=== PATIENT | female | born 1980 | race American Indian/Alaskan Native ===

== ENCOUNTER 2017-08-07 04:31 | Emergency (ER) | payer SELFPAY ==
[2017-08-07] MEDS ORDERED: CATAPRES PO ONE (07:26)
[2017-08-07] MEDS ORDERED: CATAPRES ONE (07:28)
--- NOTE | 2017-08-07 08:20 | Cat Scan Report ---
FINAL REPORT EXAM: CT HEAD/BRAIN WO CON HISTORY: galaviz, htn TECHNIQUE: CT imaging acquired through the head without intravenous contrast. Transaxial reformations are provided. PRIORS: None. FINDINGS: The ventricles, cisterns and sulci are normal. No intraparenchymal or extra-axial mass, hemorrhage, or mass effect. Galvez and white-matter differentiation is normal. Normal spherical shape of the globes. Paranasal sinuses and mastoid air cells are clear. No skull or facial fracture visualized. IMPRESSION: No acute intracranial abnormality.
[2017-08-07 08:21] LABS: Bilirubin,Urine NEG (Negative); Blood,Urine NEG (Negative); Color,Urine Yellow (Yellow); Mucus,Urine FEW /HPF; Nitrite,Urine NEG (Negative); Protein,Urine <15 mg/dL mg/dL (Negative); Urobilinogen,Urine < 2.0 mg/dL (<2.0)
[2017-08-07 08:31] LABS: Amphetamine Screen,Urine PRESUMPTIVE NEGATIVE; Benzodiazepines Screen,Urine PRESUMPTIVE NEGATIVE; Cannabinoid Screen,Urine PRESUMPTIVE NEGATIVE; Cocaine Screen,Urine PRESUMPTIVE NEGATIVE; Methadone Screen,Urine PRESUMPTIVE NEGATIVE; Opiate Screen,Urine PRESUMPTIVE NEGATIVE
[2017-08-07 08:41] LABS: Hematocrit 37.1 % (30.3-42.9); Hemoglobin 12.4 gm/dl (10.1-14.3); Mean Corpuscular HGB Conc 34 % (30-34); Mean Corpuscular Hemoglobin 30 pg (28-32); Mean Corpuscular Volume 88 fl (79-97); Platelet Count 277 K/mm3 (140-440); Red Blood Count 4.21 M/mm3 (3.65-5.03); Red Cell Distribution Width 14.6 % (13.2-15.2)
[2017-08-07 08:59] LABS: BUN/Creatinine Ratio 8; Blood Urea Nitrogen 7 mg/dL (7-17); Calcium 9.1 mg/dL (8.4-10.2); Hemolysis Index 7
[2017-08-07 09:16] LABS: Creatine Kinase MB < 1.0 ng/mL (0.0-4.0)
[2017-08-07 09:56] LABS: Basophils % (Manual) 0 % (0.0-1.8); Total Cells Counted 100
[2017-08-07 09:58] LABS: Platelet Estimate Consistent w Auto; RBC Morphology Normal
--- NOTE | 2017-08-07 18:25 | Emergency Department Report ---
ED General Adult HPI - General Chief complaint: High BP Stated complaint: H/A; DIZZINESS Time Seen by Provider: 08/07/17 16:54 Source: patient Mode of arrival: Ambulatory Limitations: No Limitations - History of Present Illness Initial comments: Reports having a "real bad headache" for the past 2 days, admits to dizziness, pressure behind the eyes, had similar symptoms years ago, was a sinus/migraine headache then. Has never been diagnosed with HTN. Admits to being under "a lot" of stress, looking for a job, moved here from [place]. -: Gradual Location: head Severity scale (0 -10): 7 Quality: other (throbbing) Consistency: constant Improves with: none Worsens with: none Associated Symptoms: denies other symptoms, headaches, other (Nausea). denies: confusion, chest pain, cough, diaphoresis, fever/chills, loss of appetite, malaise, rash, seizure, shortness of breath, syncope, weakness Treatments Prior to Arrival: other (Excerdrin migraine yesterday with no relief. ) - Related Data Previous Rx's Medication Instructions Recorded Last Taken Type Lisinopril [Zestril] 10 mg PO DAILY #30 tablet 08/07/17 Unknown Rx Allergies Allergy/AdvReac Type Severity Reaction Status Date / Time codeine Allergy Swelling Verified 08/07/17 07:21 Penicillins Allergy Hives Verified 08/07/17 07:21 ED Review of Systems ROS: Stated complaint: H/A; DIZZINESS Other details as noted in HPI Comment: All other systems reviewed and negative Constitutional: see HPI Eyes: as per HPI ENT: as per HPI Respiratory: see HPI Cardiovascular: as per HPI Endocrine: see HPI Gastrointestinal: as per HPI Genitourinary: as per HPI Musculoskeletal: as per HPI Skin: as per HPI Neurological: as per HPI Psychiatric: as per HPI Hematological/Lymphatic: as per HPI ED Past Medical Hx - Past Medical History Previous Medical History?: No - Surgical History Past Surgical History?: Yes Additional Surgical History: tubal ligation. thyroid - Social History Smoking Status: Never Smoker Substance Use Type: None - Medications Home Medications: Home Medications Medication Instructions Recorded Confirmed Last Taken Type Lisinopril [Zestril] 10 mg PO DAILY #30 tablet 08/07/17 Unknown Rx ED Physical Exam - General Limitations: No Limitations General appearance: alert, in no apparent distress - Head Head exam: Present: atraumatic - Eye Eye exam: Present: normal appearance, PERRL, EOMI - ENT ENT exam: Present: normal exam - Neck Neck exam: Present: normal inspection. Absent: tenderness - Respiratory Respiratory exam: Present: normal lung sounds bilaterally. Absent: respiratory distress, wheezes, rales, rhonchi, stridor - Cardiovascular Cardiovascular Exam: Present: regular rate, normal rhythm, normal heart sounds - GI/Abdominal GI/Abdominal exam: Present: soft, normal bowel sounds. Absent: distended, tenderness, guarding, rebound, rigid - Rectal Rectal exam: Present: deferred - Back Exam Back exam: Present: normal inspection - Neurological Exam Neurological exam: Present: alert, oriented X3, CN II-XII intact - Psychiatric Psychiatric exam: Present: normal affect - Skin Skin exam: Present: warm, dry, intact, normal color ED Course Vital Signs 08/07/17 08/07/17 08/07/17 07:21 14:51 15:56 Temperature 97.9 F 97.5 F L Pulse Rate 66 60 60 Respiratory 20 16 17 Rate Blood Pressure 209/108 Blood Pressure 184/97 182/99 [Left] O2 Sat by Pulse 100 100 100 Oximetry 08/07/17 08/07/17 08/07/17 15:57 17:32 18:36 Temperature 97.8 F Pulse Rate 59 L 64 Respiratory 17 15 18 Rate Blood Pressure Blood Pressure 172/89 193/104 [Left] O2 Sat by Pulse 100 100 100 Oximetry 08/07/17 08/07/17 08/07/17 18:48 19:28 20:31 Temperature 97.8 F Pulse Rate 64 74 Respiratory 16 Rate Blood Pressure 193/104 Blood Pressure 119/78 129/79 [Left] O2 Sat by Pulse 100 Oximetry - Reevaluation(s) Reevaluation #1: 08/07/17 18:35 Has not responded to oral anti-htn medications, will need to try IV meds. 08/07/17 20:49 She responded nicely to hydralizine 10mg IV here in the ED, she did get nausea though, and vomited. Her BP is WNL and she reports feeling much better, her headache is gone. At this time, I will start her on lisinopril 10mg PO QD, and she is to follow up with her PMD. ED Medical Decision Making - Lab Data Result diagrams: 08/07/17 08:18 08/07/17 08:18 Critical care attestation.: If time is entered above; I have spent that time in minutes in the direct care of this critically ill patient, excluding procedure time. ED Disposition Clinical Impression: Hypertension Qualifiers: Hypertension type: essential hypertension Qualified Code(s): I10 - Essential ( primary) hypertension Disposition: - TO HOME OR SELFCARE Is pt being admited?: No Does the pt Need Aspirin: No Condition: Stable Instructions: Hypertension (ED) Additional Instructions: Rest, fluids, follow up with your PMD, return as needed, take medication as prescribed. Prescriptions: Lisinopril [Zestril] 10 mg PO DAILY #30 tablet Referrals: PRIMARY CARE, [Primary Care Provider] - 3-5 Days
[2017-08-07] MEDS ORDERED: APRESOLINE IV ONE (18:36)
[2017-08-07] MEDS ORDERED: ZOFRAN IV ONE (19:31)
[2017-08-07] MEDS ORDERED: ZOFRAN ONE (19:33)
[2017-08-07 20:32] VITALS: BP 129/79
== END 2017-08-07 21:13 | disposition home or self-care (01) ==
LOC: ED 04:31
DX: I10 Essential (primary) hypertension (principal); Z98.51 Tubal ligation status; Z88.0 Allergy status to penicillin; Z88.5 Allergy status to narcotic agent
CPT/HCPCS: 36415; 70450; 80048; 80307; 81001; 82550; 82553; 84484; 84702; 85007; 85025; 93005; 93010; 96374; 96375; 99284; J0360; J2405